=== PATIENT | female | born 1965 | race African-American/Black ===

== ENCOUNTER 2020-03-20 23:02 | Emergency (ER) | payer OTHER ==
--- NOTE | 2020-03-20 23:30 | ER Document Report ---
ED Medical Screen (RME) - General Chief Complaint: Shortness Of Breath Stated Complaint: SHORTNESS OF BREATH Time Seen by Provider: 03/20/20 23:28 Mode of Arrival: Wheelchair Information source: Patient Notes: Patient presents complaining of cough with shortness of breath that started this evening. Patient states that she started to have some left-sided chest pain this evening as well. Patient states that she tested positive for COVID 7 days ago after having an exposure to her mother who is currently positive for COVID. Patient has an underlying history of hypothyroidism. I have greeted and performed a rapid initial assessment of this patient. A comprehensive ED assessment and evaluation of the patient, analysis of test results and completion of the medical decision making process will be conducted by additional ED providers. Physical Exam - Vital signs Vitals: Temp Pulse Resp BP Pulse Ox 99.5 F 96 20 134/75 H 96 03/20/20 23:19 03/20/20 23:19 03/20/20 23:19 03/20/20 23:19 03/20/20 23:19 - Respiratory Respiratory status: No respiratory distress Breath sounds: Nonproductive cough, Rales - bilat lower Lobes Course - Vital Signs Vital signs: Temp Pulse Resp BP Pulse Ox 99.5 F 96 20 134/75 H 96 03/20/20 23:19 03/20/20 23:19 03/20/20 23:19 03/20/20 23:19 03/20/20 23:19
[2020-03-21 00:55] LABS: ABSOLUTE MONOCYTES (AUTO) 0.2 10^3/uL (0.1-1.4); ABSOLUTE NEUT (AUTO) 4.1 10^3/uL (1.7-8.2); BASOPHILS % (AUTO) 0.4 % (0-2); EOSINOPHILS % (AUTO) 0.5 % (0-6); HEMATOCRIT 37.9 % (36.0-47.0); HEMOGLOBIN 13.2 g/dL (12.0-15.5); LYMPHOCYTES % (AUTO) 18.1 % (13-45); MEAN CORPUSCULAR HEMOGLOBIN 30.6 pg (27.0-33.4); MEAN CORPUSCULAR HGB CONC 34.7 g/dL (32.0-36.0); MEAN CORPUSCULAR VOLUME 88 fl (80-97); MONOCYTES % (AUTO) 4.6 % (3-13); PLATELET COUNT 235 10^3/uL (150-450); RED CELL DISTRIBUTION WIDTH 15.3 % (11.5-14.0); SEGMENTED NEUTROPHILS % (AUTO) 76.4 % (42-78); TOTAL CELLS COUNTED % (AUTO) 100 %; WHITE BLOOD COUNT 5.3 10^3/uL (4.0-10.5)
[2020-03-21 01:11] LABS: ALBUMIN 3.9 g/dL (3.5-5.0); ALKALINE PHOSPHATASE 111 U/L (38-126); ANION GAP 10 (5-19); ASPARTATE AMINO TRANSFERASE 233 U/L (14-36); BILIRUBIN,DIRECT 0.4 mg/dL (0.0-0.4); BILIRUBIN,TOTAL 0.4 mg/dL (0.2-1.3); BLOOD UREA NITROGEN 13 mg/dL (7-20); CALCIUM 8.9 mg/dL (8.4-10.2); CARBON DIOXIDE 29 mmol/L (22-30); CHLORIDE 102 mmol/L (98-107); GLUCOSE 121 mg/dL (75-110); POTASSIUM 3.4 mmol/L (3.6-5.0); TOTAL PROTEIN 7.9 g/dL (6.3-8.2)
[2020-03-21 01:23] LABS: NT PRO BNP 56 pg/mL (<125); TROPONIN I < 0.012 ng/mL
[2020-03-21] MEDS ORDERED: BENZONATATE 100 MG CAPSULE PO ONE (01:34)
[2020-03-21] MEDS ORDERED: ONDANSETRON 4 MG TAB.RAPDIS PO ONE (01:34)
--- NOTE | 2020-03-21 03:11 | RADIOLOGY REPORT (SQ) ---
CLINICAL HISTORY: shortness of breath COMPARISON: None. TECHNIQUE: CT CHEST ANGIOGRAPHY WITHOUT THEN WITH IV CONTRAST on 03/21/2020 2:14 AM CDT. MIPS reconstructions were generated. This exam was performed according to our departmental dose-optimization program, which includes automated exposure control, adjustment of the mA and/or kV according to patient size and/or use of iterative reconstruction technique. MIP images were generated. FINDINGS: Thoracic aorta is normal in course and caliber without aneurysm or dissection. Main pulmonary artery is dilated measuring 3.9 cm. The heart is enlarged. There is no pericardial effusion. Intrathoracic lymph nodes are not enlarged. There is no pleural effusion, pleural thickening or pneumothorax. Central airways are patent. There are streaky bilateral consolidative opacities in the mid and lower lungs. In the upper abdomen, there is a cyst in the left lobe of the liver. There is a moderate hiatal hernia. There are no acute osseous findings. No suspicious bony lesions. IMPRESSION: Cardiomegaly with dilated main pulmonary artery which can be seen worsening pulmonary arterial hypertension. No aortic dissection or aneurysm. No pulmonary embolus. Streaky bibasilar consolidations which could represent pneumonia.
[2020-03-21] MEDS ORDERED: NORMAL SALINE 1000 ML 1,000 ML IV ONE (04:55)
[2020-03-21] MEDS ORDERED: ACETAMINOPHEN 325 MG TABLET PO ONE (06:10)
--- NOTE | 2020-03-21 06:32 | RADIOLOGY REPORT (SQ) ---
EXAM DESCRIPTION: X-ray single view chest. CLINICAL HISTORY: 55 years Female, cp, cough, sob, covid + COMPARISON: None. TECHNIQUE: Single portable x-ray view of the chest performed on 03/21/2020 at 1:07 AM FINDINGS: The lungs are well expanded. There is patchy parenchymal opacification in the left inferior hemithorax and possibly to a lesser degree the right inferior hemithorax. Findings could reflect fibrosis, atelectasis and/or pneumonia. The lungs are otherwise grossly clear. There is no evidence of a pneumothorax. The cardiac silhouette is prominent. The mediastinal contours are normal. No acute osseous abnormality is identified. No focal soft tissue abnormalities are seen. Lines and tubes: None. IMPRESSION: Patchy parenchymal opacification in the left inferior hemithorax and possibly to a lesser degree the right inferior hemithorax possibly due to fibrosis, atelectasis and/or pneumonia.
--- NOTE | 2020-03-21 06:42 | ER Document Report ---
ED Respiratory Problem - General Chief Complaint: Shortness Of Breath Stated Complaint: SHORTNESS OF BREATH Time Seen by Provider: 03/20/20 23:28 Primary Care Provider: KURTIS LIM NP [Primary Care Provider] - Follow up as needed Mode of Arrival: Wheelchair Notes: Patient is a 55-year-old female who presents the emergency department with a chief complaint of shortness of breath and chest pain. Patient was diagnosed with COVID-19 1 week ago. Around 2144 tonight, the patient woke up out of a sleep and developed chest pain and shortness of breath. Patient's mother also has COVID-19. Patient states that she has been coughing. She has been taking Tylenol for fever and body aches. Patient has a history of hypothyroidism. She takes levothyroxine. Also has Linzess as needed for constipation. - Related Data Allergies/Adverse Reactions: codeine Allergy (Verified 03/21/20 01:42) Past Medical History - General Information source: Patient - Social History Smoking Status: Never Smoker Chew tobacco use (# tins/day): No Frequency of alcohol use: None Drug Abuse: None Family History: Reviewed & Not Pertinent Patient has homicidal ideation: No Past Surgical History: Reports: Hx Hysterectomy, Hx Orthopedic Surgery - RIGHT MENISCUS REPAIR Review of Systems - Review of Systems Notes: REVIEW OF SYSTEMS: CONSTITUTIONAL : Denies recent illness. Denies recent unintentional weight loss. Denies fever, chills, or sweats. EENT: Denies eye, ear, throat, or mouth pain, discharge, or symptoms. Denies nasal or sinus congestion. CARDIOVASCULAR: See HPI. RESPIRATORY: See HPI. GASTROINTESTINAL: Denies nausea, vomiting, and diarrhea. Denies abdominal pain. Denies constipation. GENITOURINARY: Denies difficulty urinating, burning, blood in urine, urgency or frequency. MUSCULOSKELETAL: Denies neck and back pain. Denies joint pain or swelling. SKIN: Denies rash, itchiness, or lesions HEMATOLOGIC : Denies easy bruising or bleeding. LYMPHATIC: Denies swollen, painful, enlarged glands. NEUROLOGICAL: Denies no numbness or tingling denies weakness. Denies headache. Denies altered mental status. Denies alteration in speech. PSYCHIATRIC: Denies stress, anxiety, alteration in sleep patterns, or depression. All other systems reviewed and negative. Physical Exam - Vital signs Vitals: Temp Pulse Resp BP Pulse Ox 99.5 F 96 20 134/75 H 96 03/20/20 23:19 03/20/20 23:19 03/20/20 23:19 03/20/20 23:19 03/20/20 23:19 - Notes Notes: PHYSICAL EXAMINATION: GENERAL: Appears well, healthy, well-nourished, no acute distress. HEAD: Normocephalic, atraumatic. EYES: PERRL, conjunctiva normal, all extraocular movements intact, sclera nonicteric ENT: Moist mucous membranes. NECK: Supple, no noticeable swelling, redness, rash. Normal range of motion. LUNGS: Equal breath sounds bilaterally and clear to auscultation. No wheezes rales or rhonchi. CARDIOVASCULAR: S1-S2, regular rate, regular rhythm. Radial pulses 2+, normal. ABDOMEN: Normoactive bowel sounds. Soft, nontender, no guarding, no rebound tenderness, and no masses palpated. EXTREMITIES: Normal strength and range of motion, no pitting or edema. No cyanosis. NEUROLOGICAL: Moves all extremities upon command. Strength 5/5 in all extremities. PSYCH: Normal mood, normal affect. SKIN: Warm, dry. No rash, lesions, ulcerations noted. Normal skin turgor. Course - Re-evaluation Re-evalutation: 03/21/20 02:15 Potassium is 3.4. AST and ALT are elevated, most likely due to her taking Tylenol. Will only give her Tylenol if needed. Troponin is negative. We will repeat a second troponin. Also send patient for CT of the chest. 03/21/20 06:49 Nursing staff walked the patient and the patient became short of breath and oxygen saturation dropped to low 90s on room air. CT of the chest shows cardiomegaly, pulmonary hypertension, and pneumonia, which is most likely from her COVID-19. 03/21/20 07:[address] Houser, the hospitalist and due to the patient having new onset cardiomyopathy and pulmonary hypertension, she recommends the patient be transferred to another facility. She recommended [facility]. I then spoke with the patient and she states that she had knee surgery over at [facility]. 03/21/20 07:50 I called [facility] transfer center and they said at this time, they are at capacity, but may have COVID beds. Will await callback from cardiology. 03/21/20 08:[address] Matheus Vernon, canvassing manager at [facility]. He states that he would like me to speak to the pattern marker for transfer. Patient will be admitted to the [facility] area. 03/21/20 08:[address] Sury Trevizo, hospitalist at [facility]. They recommend 6 mg of Decadron IV. They will start the Remdesivir when the patient gets there. Report given to Mary Kay Perry NP. She will evaluate the patient when transport arrives. - Vital Signs Vital signs: Temp Pulse Resp BP Pulse Ox 100.5 F H 96 21 H 139/95 H 96 03/21/20 06:15 03/20/20 23:19 03/21/20 07:01 03/21/20 07:00 03/21/20 07:01 - Laboratory Result Diagrams: 03/21/20 00:29 03/21/20 00:29 Laboratory results interpreted by me: 03/21/20 03/21/20 00:29 00:29 RDW 15.3 H Potassium 3.4 L Glucose 121 H Neonat Total Bilirubin 0.0 L AST 233 H ALT 74 H - EKG Interpretation by Me Additional EKG results interpreted by me: 03/21/20 01:00 Sinus rhythm. Rate 86. MA 156; QRS 90; QT 384; QTc 460. No ST elevations or depressions noted. No other EKG for comparison. Discharge - Discharge Clinical Impression: Pulmonary artery hypertension, Shortness of breath, Elevated liver enzymes Chest pain Qualifiers: Chest pain type: unspecified Qualified Code(s): R07.9 - Chest pain, unspecified Pneumonia Qualifiers: Pneumonia type: due to unspecified organism Laterality: bilateral Lung location: lower lobe of lung Qualified Code(s): J18.9 - Pneumonia, unspecified organism Condition: Fair Disposition: [facility] Admitting Provider: Dr. Sury Trevizo Referrals: KURTIS LIM NP [Primary Care Provider] - Follow up as needed
[2020-03-21] MEDS ORDERED: POTASSIUM CHLORIDE 20 MEQ PACKET PO ONE (06:43)
[2020-03-21] MEDS ORDERED: AZITHROMYCIN INJ 500 MG VIAL IV ONE (07:54)
[2020-03-21] MEDS ORDERED: CEFTRIAXONE INJ 1000 MG VIAL IV ONE (07:54)
[2020-03-21] MEDS ORDERED: DEXAMETHASONE SOD PHOSPHATE INJ 4 MG/1 ML VIAL IV ONE (08:19)
--- NOTE | 2020-03-21 08:29 | EKG REPORT ---
SEVERITY:- BORDERLINE ECG - SINUS RHYTHM BORDERLINE T ABNORMALITIES, DIFFUSE LEADS : Confirmed by: Zac Dyson MD 21-Mar-2020 08:27:20
[2020-03-21 10:21] VITALS: BP 130/90
--- NOTE | 2020-03-21 10:23 | ER Document Report ---
Doctor's Note Notes: 03/21/20 10:21 1000-consulted with Dr. Babb, rn trauma director of slot operations, regarding pertinent laboratory diagnostic and clinical findings for pulmonary hypertension patient and arterial pulmonary hypertension. Dr. Babb stated he cannot manage this patient at this hospital. Consulted with Dr. Houser, hospitalist who is BC Sampson, consulted with to let her know that Dr. Babb does not want to keep patient at [facility] and recommends transfer. Patient will be transferred to [facility]
--- NOTE | 2020-03-21 10:46 | PDOC CONSULTATION ---
Consultation Consult Date: 03/21/20 Provider Consulted: LIZA MONTEZ History of Present Illness Admission Date/PCP: KURTIS LIM NP History of Present Illness: MYRIAM GUERRA is a 55 year old female, PMH of hypothyroidism who came in the ED due to chest pain and SOB. She was diagnosed with COVID 1 week prior with minimal symptoms. 1 day PTC at around 10 pm she was woken up by a lot of coughing, left sided sharp chest pain, 5/10, non radiating, relieved by leaning forward and SOB. She denied any previous episodes. No palpitations, no syncope. Persistence of symptom prompted ED consult. In the ED, VS were stable. CBC mild leukocytosis. CMP unremarkable. CT chest that was done showed cardiomegaly with dilated main pulm artery. Troponin negative. Hospitalist was consulted for possible admission or transfer. Of note, besides her hypothyroidism which has been stable, she does not have any significant cardiac history, no prior SD, CHF history. Family Hx is negative for CAD or sudden cardiac . Past Medical History Medical History: None Pulmonary Medical History: Reports: None EENT Medical History: Reports: None Neurological Medical History: Reports: None Endocrine Medical History: Reports: Hypothyroidism, Obesity Renal/ Medical History: Reports: None Malignancy Medical History: Reports: None GI Medical History: Reports: None Musculoskeltal Medical History: Reports: None Skin Medical History: Reports: None Psychiatric Medical History: Reports: None Traumatic Medical History: Reports: None Hematology: Reports: None Infectious Medical History: Reports: None Past Surgical History Past Surgical History: Reports: Hysterectomy, Orthopedic Surgery - RIGHT MENISCUS REPAIR Social History Information Source: Patient Lives with: Family Smoking Status: Never Smoker Electronic Cigarette use?: No Family History Family History: Reviewed & Not Pertinent Parental Family History Reviewed: Yes Children Family History Reviewed: Yes Sibling(s) Family History Reviewed.: Yes Medication/Allergy Allergies/Adverse Reactions: codeine Allergy (Verified 03/21/20 01:42) Review of Systems Constitutional: PRESENT: as per HPI Eyes: ABSENT: visual disturbances Ears: ABSENT: hearing changes Nose, Mouth, and Throat: ABSENT: mouth pain, sore throat Cardiovascular: PRESENT: chest pain. ABSENT: orthropnea Respiratory: PRESENT: cough, dyspnea Gastrointestinal: ABSENT: abdominal pain, bloating, diarrhea Genitourinary: ABSENT: difficulty urinating, dysuria Musculoskeletal: ABSENT: joint swelling Neurological: ABSENT: numbness, paresthesias Endocrine: ABSENT: cold intolerance, flushing, heat intolerance Physical Exam Vital Signs: Temp Pulse Resp BP Pulse Ox 99.0 F 80 18 130/90 H 98 03/21/20 10:30 03/21/20 10:30 03/21/20 10:30 03/21/20 10:30 03/21/20 10:30 Intake & Output 03/20/20 03/21/20 03/22/20 06:59 06:59 06:59 Intake Total 1000 Balance 1000 Weight 93.44 kg General appearance: PRESENT: no acute distress, cooperative Head exam: PRESENT: atraumatic Eye exam: PRESENT: EOMI, PERRLA Mouth exam: PRESENT: moist Neck exam: PRESENT: full ROM Respiratory exam: PRESENT: clear to auscultation teresa, unlabored. ABSENT: rales, symmetrical Cardiovascular exam: PRESENT: RRR, +S1, +S2 Pulses: PRESENT: +2 pedal pulses bilateral GI/Abdominal exam: PRESENT: normal bowel sounds, soft. ABSENT: rebound, tenderness Extremities exam: PRESENT: full ROM. ABSENT: +2 edema Musculoskeletal exam: PRESENT: full ROM Neurological exam: PRESENT: alert, awake, oriented to person, oriented to place, oriented to time, oriented to situation Psychiatric exam: PRESENT: normal mood Skin exam: PRESENT: normal color Results Laboratory Results: 03/21/20 00:29 03/21/20 00:29 03/21/20 03/21/20 00:29 00:29 WBC 5.3 RBC 4.30 Hgb 13.2 Hct 37.9 MCV 88 MCH 30.6 MCHC 34.7 RDW 15.3 H Plt Count 235 Seg Neutrophils % 76.4 Sodium 140.7 Potassium 3.4 L Chloride 102 Carbon Dioxide 29 Anion Gap 10 BUN 13 Creatinine 0.89 Est GFR ( Amer) > 60 Glucose 121 H Calcium 8.9 Total Bilirubin 0.4 AST 233 H Alkaline Phosphatase 111 Total Protein 7.9 Albumin 3.9 03/21/20 03/21/20 00:29 03:49 Troponin I < 0.012 < 0.012 NT-Pro-B Natriuret Pep 56 Impressions: Chest X-Ray 03/20/20 23:29 IMPRESSION: Patchy parenchymal opacification in the left inferior hemithorax and possibly to a lesser degree the right inferior hemithorax possibly due to fibrosis, atelectasis and/or pneumonia. Chest/Abdomen CTA 03/21/20 02:14 IMPRESSION: Cardiomegaly with dilated main pulmonary artery which can be seen worsening pulmonary arterial hypertension. No aortic dissection or aneurysm. No pulmonary embolus. Streaky bibasilar consolidations which could represent pneumonia. Assessment and Plan - Diagnosis (1) Chest pain Qualifiers: Chest pain type: precordial pain Qualified Code(s): R07.2 - Precordial pain Is this a current diagnosis for this admission?: Yes Plan: - new onset, sharp, left sided, relieved by sitting up - dx with COVID 1 week prior - EKG sinus rhythm, trop negative - CT chest cardiomegaly, Pulm artery dilatation - ddx: cardiomyopathy from COVID, dilated cardio from ischemia - since this a new onset Cardiomegaly on a patient with no significant cardiac history she would likely need a cath or other imaging to work up. - Dr. Babb was called by ED provider Mary Kay and was told that he cannot accept the patient for admission - patient to be transferred to [facility] per ED provider - Plan Summary Summary: Patient not appropriate for admission here per Cardio. Transfer patient to Tertiary care facility per ED provider - Time Time Spent with patient: 25-34 minutes Medications reviewed and adjusted accordingly: Yes Anticipated Discharge Disposition: Tertiary Anticipated Discharge Timeframe: within 24 hours
== END 2020-03-21 10:30 | disposition short-term general hospital (02) ==
LOC: ER 23:02
DX: J18.9 Pneumonia, unspecified organism (principal); I27.21 Secondary pulmonary arterial hypertension; R06.02 Shortness of breath; R07.9 Chest pain, unspecified; Z20.828 Contact with and (suspected) exposure to other viral communicable diseases
CPT/HCPCS: 93005; 99285; 96361; 96375; 96365; 36415; 87040; 84145; 85025; 80053; 84484; 83880; 71045; 71275; 93010; J1100; S0119; J0696; J7030; J3490; 87150

== ENCOUNTER → 2020-06-02 | Outpatient (CLI) | payer OTHER | LOC: WI 06:49 | PROVIDERS: ATTEND Nurse Practitioner | DX: Z12.31 Encounter for screening mammogram for malignant neoplasm of breast (principal) | CPT/HCPCS: 77063; 77067 ==

== ENCOUNTER → 2020-06-03 | Outpatient (CLI) | payer OTHER ==
--- NOTE | 2020-06-03 12:58 | RADIOLOGY REPORT (SQ) ---
EXAM DESCRIPTION: CT ABDOMEN COMBO IMAGES COMPLETED DATE/TIME: 06/03/2020 8:11 am REASON FOR STUDY: DISORDER OF KIDNEY AND URETER, UNSPECIFIED N28.9 DISORDER OF KIDNEY AND URETER, U NSPECIFIED COMPARISON: None. TECHNIQUE: CT scan of the abdomen performed with and without intravenous contrast, and without oral contrast. Contrasted imaging performed using helical scanning technique with dynamic intravenous cont rast injection. Images reviewed with lung, soft tissue, and bone windows. Reconstructed coronal and s agittal MPR images reviewed. Delayed images for evaluation of the urinary system also acquired and ev aluated. All images stored on PACS. All CT scanners at this facility use dose modulation, iterative reconstruction, and/or weight based d osing when appropriate to reduce radiation dose to as low as reasonably achievable (ALARA). [facility]: Dose Right [facility]: CareDose [facility]: Dose Right [facility]: Teradose 4D [facility]: Local Reputation CONTRAST TYPE AND DOSE: Contrast/concentration: Isovue 350.00 mmol/ml; Total Contrast Delivered: 100 .0 ml; Total Saline Delivered: 65.0 ml RENAL FUNCTION: GFR > 60. RADIATION DOSE: CT Rad equipment meets quality standard of care and radiation dose reduction techniq ues were employed. CTDIvol: 17.8 - 33.8 mGy. DLP: 2796 mGy-cm. LIMITATIONS: None. FINDINGS: NONCONTRASTED IMAGING: No evidence of hepatic steatosis. No nephrolithiasis or ureterolit hiasis. POSTCONTRASTED IMAGING: LOWER CHEST: Cardiomegaly and paraesophageal hernia. LIVER: The morphology of the liver is noncirrhotic. The portal veins are patent. There numerous low -attenuation lesions scattered throughout the liver that range in size from less than 5 mm up to 3.1 x 3.1 cm ; these lesions demonstrate no enhancement and have an internal attenuation of less than 20 Hounsfield units. There is no solid hepatic mass. SPLEEN: No splenomegaly or splenic mass. PANCREAS: No acute gross abnormality of the pancreas. GALLBLADDER: No acute gross abnormality of the gallbladder. ADRENAL GLANDS: No mass or asymmetry. RIGHT KIDNEY AND URETER: 2.1 x 1.9 cm nonenhancing cystic lesion in the anterior cortex of the lower pole of the kidney consistent with a simple cyst. The 11 x 8 mm low-attenuation lesion that projects within the medulla of the interpolar portion of the kidney (image 66 of series 6) demonstrates no en hancement and could represent a parapelvic cyst. The subcentimeter cortical based lesion in the late ral cortex of the upper pole of the kidney (image 53 of series 6) is considered too small to cathie garcia. There is no solid mass, hydronephrosis or hydroureter. LEFT KIDNEY AND URETER: No solid mass, hydronephrosis or hydroureter, AORTA AND VESSELS: No aneurysm or dissection of the abdominal aorta. There is a variant retroaortic left renal vein. The renal arteries and veins are patent. RETROPERITONEUM: No retroperitoneal adenopathy, hemorrhage or mass. BOWEL AND PERITONEAL CAVITY: No bowel obstruction, bowel wall thickening or pericolonic/ perienteric inflammation. No mesenteric adenopathy, free intraperitoneal fluid or mesenteric/ omental inflammati on. APPENDIX: Normal. ABDOMINAL WALL: No mass or hernia. BONES: No acute abnormality. OTHER: No other findings. IMPRESSION: 1. The 2.1 x 1.9 cm nonenhancing cystic lesion in the anterior cortex of the lower pole of the right kidney is consistent with a simple cyst. 2. The 11 x 8 mm low-attenuation lesion that projects within the medulla of the interpolar portion of the right kidney (image 66 of series 6) demonstrates no enhancement and could represent a parapelvic cyst. 3. The subcentimeter cortical based lesion in the lateral cortex of the upper pole of the right kidne y (image 53 of series 6) is considered too small to characterize but it likely represents a simple cy st. 4. Other findings as described above. TECHNICAL DOCUMENTATION: JOB ID: [id number] Quality ID # [id number]: Final reports with documentation of one or more dose reduction techniques (e.g., Au tomated exposure control, adjustment of the mA and/or kV according to patient size, use of iterative reconstruction technique) 2010 [employer]- All Rights Reserved Reading location - IP/workstation name: [email or web address]
== END ==
LOC: RAD 07:32
PROVIDERS: ATTEND Nurse Practitioner
DX: N28.1 Cyst of kidney, acquired (principal); I51.7 Cardiomegaly; K44.9 Diaphragmatic hernia without obstruction or gangrene
CPT/HCPCS: 74170; 82565